=== PATIENT | female | born 1990 | race Caucasian/White ===

== ENCOUNTER 2017-10-31 11:50 | Emergency (ER) | payer BC ==
[2017-10-31 12:02] VITALS: BP 121/55
--- NOTE | 2017-10-31 12:49 | UC ---
Respiratory Complaint HPI - HPI Summary HPI Summary: 27 y/o female presents with chills, body aches, and ST that started 2 days ago. She tells me that her sister has these same symptoms and was diagnosed with the flu yesterday. She shared a bed and a toothbrush with her sister. She has been taking ibuprofen for the discomfort. Denies fever, cough, SOB, chest pain, abdominal pain, n/v/d/c - History of Current Complaint Chief Complaint: UCGeneralIllness Stated Complaint: HEADACHE,ACHEY,SORE THROAT Time Seen by Provider: 10/31/17 12:48 Hx Obtained From: Patient Hx Last Menstrual Period: 10/21/17 Onset/Duration: Gradual Onset Timing: Constant Severity Initially: Mild Severity Currently: Moderate Pain Intensity: 4 Pain Scale Used: 0-10 Numeric - Allergies/Home Medications Allergies/Adverse Reactions: Allergies Allergy/AdvReac Type Severity Reaction Status Date / Time No Known Allergies Allergy Verified 10/31/17 11:59 PMH/Surg Hx/FS Hx/Imm Hx Previously Healthy: Yes - Surgical History Surgical History: None - Social History Occupation: Employed Full-time Lives: With Family Alcohol Use: Weekly Substance Use Type: None Smoking Status (MU): Never Smoked Tobacco Review of Systems Constitutional: Chills, Fatigue, Other - Body aches Skin: Negative Eyes: Negative ENT: Sore Throat Respiratory: Negative Cardiovascular: Negative Gastrointestinal: Negative Psychological: Negative All Other Systems Reviewed And Are Negative: Yes Physical Exam Triage Information Reviewed: Yes Appearance: Well-Appearing, No Pain Distress, Well-Nourished Vital Signs: Initial Vital Signs Temp 97.6 F 10/31/17 12:00 Pulse 87 10/31/17 12:00 Resp 16 10/31/17 12:00 BP 121/55 10/31/17 12:00 Pulse Ox 100 10/31/17 12:00 Vital Signs Reviewed: Yes Eyes: Positive: Conjunctiva Clear. Negative: Conjunctiva Inflamed, Discharge ENT: Positive: Hearing grossly normal, Pharynx normal, Pharyngeal erythema, TMs normal, Uvula midline. Negative: Nasal congestion, Nasal drainage, TM bulging, TM dull, TM red, Tonsillar swelling, Tonsillar exudate, Muffled voice, Hoarse voice, Sinus tenderness Neck: Positive: Supple, Nontender, No Lymphadenopathy Respiratory: Positive: Chest non-tender, Lungs clear, Normal breath sounds, No respiratory distress, No accessory muscle use Cardiovascular: Positive: RRR, No Murmur, Pulses Normal Abdomen Description: Positive: Nontender, No Organomegaly, Soft. Negative: Distended, Guarding, Hepatomegaly, Splenomegaly Bowel Sounds: Positive: Present Neurological: Positive: Alert. Negative: Fatigued Psychological: Positive: Age Appropriate Behavior Skin: Negative: rashes UC Diagnostic Evaluation - Laboratory O2 Sat by Pulse Oximetry: 100 Respiratory Course/Dx - Course Course Of Treatment: Exposed to flu and now has symptoms. Per new recommendations treat flu exposures with tamiflu. POC flu negative. POC strep negative - Differential Dx/Diagnosis Differential Diagnosis/HQI/PQRI: Bronchitis, Influenza, Laryngitis, Lower Resp Infection Provider Diagnoses: Body aches. Chills. Sore throat Discharge - Discharge Plan Condition: Stable Disposition: HOME Prescriptions: Oseltamivir CAP* [Tamiflu CAP*] 75 mg PO BID #10 cap Patient Education Materials: Influenza (ED) Referrals: No Primary Care Phys,NOPCP [Primary Care Provider] - Additional Instructions: If you develop a fever, shortness of breath, chest pain, new or worsening symptoms - please call your PCP or go to the ED.
== END 2017-10-31 13:33 | disposition home or self-care (01) ==
LOC: UCEAST 11:50
DX: R52 Pain, unspecified (principal); R68.83 Chills (without fever); J02.9 Acute pharyngitis, unspecified; Z72.89 Other problems related to lifestyle
CPT/HCPCS: 87502; 87651; 99212; G0463